=== PATIENT | female | born 1945 | race African-American/Black ===

== ENCOUNTER 2018-06-13 15:23 | Inpatient (IN) | payer OTHER ==
[~2018-06-13] VITALS: Ht 154.9 cm; Wt 111.1 kg
[~2018-06-13 15:23] MED LIST: LISI10TA5 PO; MECL-109 PO; OMEP20TA15 PO; SIMV40TA5 PO
[2018-06-13] MEDS ORDERED: KETOROLAC 30MG/ML VIAL IM ONE (17:30)
[2018-06-13 19:55] LABS: CHLORIDE 100 mEq/L (98-107)
[2018-06-13 20:01] LABS: BASOPHILS % 0.6 % (0.0-2.0); EOSINOPHILS % 0.3 % (0.0-5.0); HEMATOCRIT. 37.7 % (36.0-48.0); HEMOGLOBIN. 12.6 g/dL (12.0-16.0); LYMPHOCYTES % 11.2 % (20.0-50.0); MEAN CORPUSCULAR HEMOGLOBIN 28.6 pg (28.0-32.0); MEAN CORPUSCULAR VOLUME 85.7 fL (81.0-99.0); MEAN PLATELET VOLUME 8.8 fl (7.4-10.4); NEUTROPHILS % 80.9 % (40.0-76.0); PLATELET 499 x1000/uL (130-400); RED BLOOD CELL COUNT 4.39 mill/uL (4.2-5.4); RED CELL DISTRIBUTION WIDTH 12.9 % (11.6-14.6)
[2018-06-13 22:52] VITALS: BP 96/51
[2018-06-13 22:55] VITALS: BP 96/51
[2018-06-13] MEDS ORDERED: ACETAMINOPHEN 325MG TABLET PO PRN (23:15)
[2018-06-14 00:13] VITALS: BP 101/53
[2018-06-14 04:00] VITALS: BP 98/46
[2018-06-14 08:00] VITALS: BP 93/38
[2018-06-14] MEDS: SODIUM CHLORIDE 0.9% 1,000 ML IV SCH ×2 (08:30→21:30)
[2018-06-14] MEDS: LISINOPRIL 10MG TABLET PO SCH (09:00)
[2018-06-14] MEDS: HEPARIN 5000 UNITS/ML VIAL SUBCUT SCH ×2 (09:17→21:30)
[2018-06-14] MEDS: OMEPRAZOLE 20MG CAPSULE EXTENDED RELEASE PO SCH (09:18)
[2018-06-14 12:00] VITALS: BP 103/52
[2018-06-14 16:00] VITALS: BP 104/52
[2018-06-14 20:00] VITALS: BP 94/43
[2018-06-14] MEDS: ATORVASTATIN CALCIUM 20MG TABLET PO SCH (21:29)
[2018-06-15 00:05] VITALS: BP 94/42
[2018-06-15 04:00] VITALS: BP 103/43
[2018-06-15 07:05] LABS: BASOPHILS % 0.5 % (0.0-2.0); HEMATOCRIT. 32.8 % (36.0-48.0); LYMPHOCYTES % 22.4 % (20.0-50.0); MEAN CORPUSCULAR HEMOGLOBIN 28.7 pg (28.0-32.0); MEAN CORPUSCULAR VOLUME 85.3 fL (81.0-99.0); MEAN PLATELET VOLUME 8.9 fl (7.4-10.4); NEUTROPHILS % 66.1 % (40.0-76.0); PLATELET 382 x1000/uL (130-400); RED BLOOD CELL COUNT 3.85 mill/uL (4.2-5.4); RED CELL DISTRIBUTION WIDTH 12.9 % (11.6-14.6)
[2018-06-15 07:27] LABS: CHLORIDE 105 mEq/L (98-107)
[2018-06-15 08:00] VITALS: BP 101/42
[2018-06-15] MEDS: HEPARIN 5000 UNITS/ML VIAL SUBCUT SCH ×2 (08:21→21:12)
[2018-06-15] MEDS: OMEPRAZOLE 20MG CAPSULE EXTENDED RELEASE PO SCH (08:21)
[2018-06-15] MEDS: LISINOPRIL 10MG TABLET PO SCH (08:35)
[2018-06-15] MEDS: SODIUM CHLORIDE 0.9% 1,000 ML IV SCH (11:02)
[2018-06-15] MEDS: DOCUSATE SODIUM 250MG CAPSULE PO PRN (11:50)
[2018-06-15 12:00] VITALS: BP 108/56
[2018-06-15 16:00] VITALS: BP 120/88
[2018-06-15 20:00] VITALS: BP 114/59
[2018-06-15] MEDS: ATORVASTATIN CALCIUM 20MG TABLET PO SCH (21:12)
[2018-06-16 00:05] VITALS: BP 125/72
[2018-06-16] MEDS: SODIUM CHLORIDE 0.9% 1,000 ML IV SCH ×2 (00:44→14:45)
[2018-06-16 04:00] VITALS: BP 115/61
[2018-06-16 08:00] VITALS: BP 122/55
[2018-06-16] MEDS: OMEPRAZOLE 20MG CAPSULE EXTENDED RELEASE PO SCH (08:50)
[2018-06-16] MEDS: DOCUSATE SODIUM 250MG CAPSULE PO PRN (08:50)
[2018-06-16] MEDS: LISINOPRIL 10MG TABLET PO SCH (08:50)
[2018-06-16] MEDS: HEPARIN 5000 UNITS/ML VIAL SUBCUT SCH ×2 (08:51→21:55)
[2018-06-16 12:00] VITALS: BP 115/56
[2018-06-16] MEDS ORDERED: AMLODIPINE 5MG TABLET PO SCH (14:15)
[2018-06-16] MEDS ORDERED: DOCUSATE SODIUM 100MG CAPSULE PO PRN (14:15)
[2018-06-16] MEDS ORDERED: HYDRALAZINE 20MG/ML VIAL IV PRN (14:15)
[2018-06-16] MEDS ORDERED: MAGNESIUM/ALUMINUM HYDROXIDE/SIMETHICONE 30ML UDC PO PRN (14:15)
[2018-06-16] MEDS: AMLODIPINE 2.5MG TABLET PO SCH ×2 (14:45→21:54)
[2018-06-16] MEDS: CLONIDINE HCL 0.2MG/24HR PATCH TD SCH (15:00)
[2018-06-16 19:12] LABS: CLARITY URINE CLEAR (CLEAR); COLOR URINE YELLOW (YELLOW); KETONES URINE NEGATIVE (NEGATIVE); LEUKOCYTE ESTERASE URINE NEGATIVE (NEGATIVE); NITRITE URINE NEGATIVE (NEGATIVE); OCCULT BLOOD URINE NEGATIVE (NEGATIVE); PROTEIN URINE NEGATIVE (NEGATIVE); SPECIFIC GRAVITY URINE 1.016 (1.005-1.030); UROBILINOGEN URINE 0.2 E.U./dL (0.2-1.0)
[2018-06-16 20:00] VITALS: BP 130/61
[2018-06-16 20:41] LABS: PROTHROMBIN TIME 10.4 sec (9.1-11.1)
[2018-06-16] MEDS: ATORVASTATIN CALCIUM 20MG TABLET PO SCH (21:54)
[2018-06-17 00:33] VITALS: BP 123/63
[2018-06-17] MEDS: MORPHINE SULFATE 4 MG/ML CPJ (NOT FOR IM USE) IV PRN ×2 (00:40→10:22)
[2018-06-17] MEDS: SODIUM CHLORIDE 0.9% 1,000 ML IV SCH ×2 (03:36→17:29)
[2018-06-17] MEDS: DIPHENHYDRAMINE 50MG/ML VIAL IV PRN ×2 (03:44→21:55)
[2018-06-17 04:00] VITALS: BP 128/50
[2018-06-17 06:09] LABS: BASOPHILS % 0.7 % (0.0-2.0); EOSINOPHILS % 1.1 % (0.0-5.0); HEMATOCRIT. 31.8 % (36.0-48.0); HEMOGLOBIN. 10.7 g/dL (12.0-16.0); LYMPHOCYTES % 20.2 % (20.0-50.0); MEAN CORPUSCULAR HEMOGLOBIN 28.6 pg (28.0-32.0); MEAN CORPUSCULAR VOLUME 85.2 fL (81.0-99.0); MEAN PLATELET VOLUME 9.5 fl (7.4-10.4); MONOCYTES % 7.6 % (2.0-8.0); NEUTROPHILS % 70.4 % (40.0-76.0); PLATELET 339 x1000/uL (130-400); RED BLOOD CELL COUNT 3.73 mill/uL (4.2-5.4); RED CELL DISTRIBUTION WIDTH 13.1 % (11.6-14.6)
[2018-06-17 06:29] LABS: CHLORIDE 108 mEq/L (98-107)
[2018-06-17 06:40] LABS: CREATINE KINASE 38 IU/L (26-192); LDL CHOLESTEROL 74 mg/dL (5-100)
[2018-06-17 06:47] LABS: HDL CHOLESTEROL 39 mg/dL (40-59)
[2018-06-17 08:00] VITALS: BP 134/65
[2018-06-17] MEDS: OMEPRAZOLE 20MG CAPSULE EXTENDED RELEASE PO SCH (09:05)
[2018-06-17] MEDS: AMLODIPINE 2.5MG TABLET PO SCH ×2 (09:05→20:36)
[2018-06-17] MEDS: HEPARIN 5000 UNITS/ML VIAL SUBCUT SCH (09:06)
[2018-06-17] MEDS: CLONIDINE HCL 0.2MG/24HR PATCH TD SCH (09:08)
[2018-06-17] MEDS ORDERED: POTASSIUM CHLORIDE 20MEQ/PACKET PO NR (10:45)
[2018-06-17] MEDS ORDERED: MAGNESIUM 2 G PREMIX 50 ML IV NR (11:30)
[2018-06-17 12:00] VITALS: BP 127/78
[2018-06-17 16:00] VITALS: BP 130/79
[2018-06-17] MEDS ORDERED: MORPHINE SULFATE 4 MG/ML CPJ (NOT FOR IM USE) IV PRN (19:15)
[2018-06-17 20:00] VITALS: BP 121/66
[2018-06-17] MEDS: ATORVASTATIN CALCIUM 20MG TABLET PO SCH (21:55)
[2018-06-18] VITALS (35 sets, daily range): BP systolic 87–141; BP diastolic 32–87
[2018-06-18] MEDS ORDERED: LIDOCAINE HCL/EPINEPHRINE 1%-EPI 1:100,000 20 ML VIAL ONE (06:27)
[2018-06-18] MEDS ORDERED: THROMBIN (BOVINE) 5000 UNITS/VIAL TOP ONE ×2 (06:27→09:43)
[2018-06-18] MEDS ORDERED: BACITRACIN 50,000 UNITS/VIAL ONE (06:28)
[2018-06-18] MEDS ORDERED: HYDROMORPHONE HCL/PF 2MG/ML (OR) ONE (06:44)
[2018-06-18 06:45] LABS: BASOPHILS % 0.6 % (0.0-2.0); EOSINOPHILS % 2.9 % (0.0-5.0); HEMOGLOBIN. 11.1 g/dL (12.0-16.0); LYMPHOCYTES % 13.4 % (20.0-50.0); MEAN CORPUSCULAR HEMOGLOBIN 28.5 pg (28.0-32.0); MEAN CORPUSCULAR VOLUME 84.7 fL (81.0-99.0); MEAN PLATELET VOLUME 9.4 fl (7.4-10.4); NEUTROPHILS % 76.1 % (40.0-76.0); PLATELET 407 x1000/uL (130-400); RED BLOOD CELL COUNT 3.89 mill/uL (4.2-5.4); RED CELL DISTRIBUTION WIDTH 12.8 % (11.6-14.6)
[2018-06-18] MEDS ORDERED: PROPOFOL 200MG/20ML VIAL IV ONE (06:45)
[2018-06-18] MEDS ORDERED: FENTANYL CITRATE/PF 50MCG/ML 5ML VIAL ONE (06:45)
[2018-06-18] MEDS ORDERED: ROCURONIUM BROMIDE 10MG/ML VIAL 5ML IV ONE ×2 (06:45→07:37)
[2018-06-18] MEDS ORDERED: MIDAZOLAM HCL 2 MG/2 ML VIAL ONE (06:46)
[2018-06-18] MEDS ORDERED: CEFAZOLIN SODIUM 1000MG/VIAL ONE (06:49)
[2018-06-18] MEDS ORDERED: ONDANSETRON HCL 4MG/2ML INJ IV PRN (07:15)
[2018-06-18 07:45] LABS: CHLORIDE 108 mEq/L (98-107)
[2018-06-18] MEDS ORDERED: ESMOLOL HCL 10MG/ML 10ML VIAL IV ONE (07:55)
[2018-06-18] MEDS ORDERED: HYDROCODONE/APAP 7.5/325MG 1 TAB TABLET PO PRN (09:00)
[2018-06-18] MEDS ORDERED: GLYCOPYRROLATE 0.2 MG/ML 2ML VIAL ONE (10:13)
[2018-06-18] MEDS ORDERED: BACITRACIN 15GM TUBE TOP ONE (10:38)
[2018-06-18] MEDS ORDERED: DIPHENHYDRAMINE INJ IV PRN (11:00)
[2018-06-18] MEDS ORDERED: NALOXONE INJ IV PRN (11:00)
[2018-06-18] MEDS ORDERED: ONDANSETRON INJ IV PRN (11:00)
[2018-06-18] MEDS: MORPHINE SULFATE 4 MG/ML CPJ (NOT FOR IM USE) IV PRN (11:47)
[2018-06-18] MEDS: DEXT 5%/LACTATED RINGERS 1,000 ML IV SCH ×2 (11:47→21:23)
[2018-06-18] MEDS ORDERED: NICARDIPINE 100 MG in SODIUM CHLORIDE 0.9% 60 ML IV PRN (12:00)
[2018-06-18] MEDS: HYDROMORPHONE PCA 10MG/50ML IV PRN (12:33)
[2018-06-18] MEDS: OMEPRAZOLE 20MG CAPSULE EXTENDED RELEASE PO SCH (13:08)
[2018-06-18] MEDS ORDERED: CEFAZOLIN SODIUM 1000MG/VIAL IV SCH (14:00)
[2018-06-18] MEDS: CEFAZOLIN 1000MG PREMIX 50 ML IV SCH ×2 (16:58→21:18)
[2018-06-18] MEDS: NEBIVOLOL HCL 5 MG TABLET PO SCH (16:59)
[2018-06-18 18:30] LABS: HEMATOCRIT 31.3 % (36.0-48.0); HEMOGLOBIN 10.4 g/dL (12.0-16.0)
[2018-06-18] MEDS: AMLODIPINE 2.5MG TABLET PO SCH (21:00)
[2018-06-18] MEDS: ATORVASTATIN CALCIUM 20MG TABLET PO SCH (21:19)
[2018-06-19] VITALS (41 sets, daily range): BP systolic 77–121; BP diastolic 43–78
[2018-06-19] MEDS: DEXT 5%/LACTATED RINGERS 1,000 ML IV SCH ×4 (05:44→22:43)
[2018-06-19] MEDS: CEFAZOLIN 1000MG PREMIX 50 ML IV SCH ×3 (05:44→21:03)
[2018-06-19] MEDS: OMEPRAZOLE 20MG CAPSULE EXTENDED RELEASE PO SCH (05:44)
[2018-06-19 06:32] LABS: HEMATOCRIT 34.1 % (36.0-48.0); HEMOGLOBIN 11.1 g/dL (12.0-16.0); MEAN CORPUSCULAR HEMOGLOBIN 28.1 pg (28.0-32.0); MEAN CORPUSCULAR VOLUME 86.4 fL (81.0-99.0); PLATELET 435 x1000/uL (130-400); RED BLOOD CELL COUNT 3.95 mill/uL (4.2-5.4); RED CELL DISTRIBUTION WIDTH 13.4 % (11.6-14.6)
[2018-06-19] MEDS: MORPHINE SULFATE 4 MG/ML CPJ (NOT FOR IM USE) IV PRN (08:31)
[2018-06-19] MEDS: NEBIVOLOL HCL 5 MG TABLET PO SCH (09:44)
[2018-06-19] MEDS ORDERED: SODIUM CHLORIDE 0.9% 500 ML IV SCH (11:45)
[2018-06-19] MEDS ORDERED: MAGNESIUM 1 G PREMIX 100 ML IV NR ×2 (13:22→16:00)
[2018-06-19] MEDS ORDERED: SODIUM CHLORIDE 0.9% 500 ML IV NR (19:45)
[2018-06-19] MEDS: ATORVASTATIN CALCIUM 20MG TABLET PO SCH (20:01)
[2018-06-19] MEDS: AMLODIPINE 2.5MG TABLET PO SCH (21:00)
[2018-06-19] MEDS: HYDROMORPHONE PCA 10MG/50ML IV PRN (21:14)
[2018-06-20] VITALS (60 sets, daily range): BP systolic 51–184; BP diastolic 20–99
[2018-06-20] MEDS: DEXT 5%/LACTATED RINGERS 1,000 ML IV SCH ×3 (05:38→21:23)
[2018-06-20] MEDS: CEFAZOLIN 1000MG PREMIX 50 ML IV SCH ×2 (05:38→15:46)
[2018-06-20] MEDS: OMEPRAZOLE 20MG CAPSULE EXTENDED RELEASE PO SCH (05:38)
[2018-06-20 05:46] LABS: HEMATOCRIT 24.9 % (36.0-48.0); HEMOGLOBIN 8.4 g/dL (12.0-16.0); MEAN CORPUSCULAR HEMOGLOBIN 28.9 pg (28.0-32.0); PLATELET 321 x1000/uL (130-400); RED BLOOD CELL COUNT 2.89 mill/uL (4.2-5.4); RED CELL DISTRIBUTION WIDTH 13.1 % (11.6-14.6)
[2018-06-20 05:53] LABS: CHLORIDE 108 mEq/L (98-107)
[2018-06-20] MEDS: NEBIVOLOL HCL 5 MG TABLET PO SCH (09:00)
[2018-06-20] MEDS: AMLODIPINE 2.5MG TABLET PO SCH (09:00)
[2018-06-20] MEDS: MIDODRINE HCL 5MG TABLET PO SCH ×2 (15:46→19:11)
[2018-06-20] MEDS: ATORVASTATIN CALCIUM 20MG TABLET PO SCH (21:23)
[2018-06-20] MEDS ORDERED: NOREPINEPHRINE 8 MG in DEXT 5% WATER 492 ML IV PRN (22:15)
[2018-06-21] VITALS (70 sets, daily range): BP systolic 78–132; BP diastolic 25–77
[2018-06-21] MEDS: DEXT 5%/LACTATED RINGERS 1,000 ML IV SCH ×3 (01:40→15:00)
[2018-06-21 05:19] LABS: BASOPHILS % 0.4 % (0.0-2.0); EOSINOPHILS % 2.8 % (0.0-5.0); HEMATOCRIT. 25.5 % (36.0-48.0); HEMOGLOBIN. 8.7 g/dL (12.0-16.0); LYMPHOCYTES % 14.3 % (20.0-50.0); MEAN CORPUSCULAR VOLUME 85.5 fL (81.0-99.0); MEAN PLATELET VOLUME 8.6 fl (7.4-10.4); MONOCYTES % 10.2 % (2.0-8.0); NEUTROPHILS % 72.3 % (40.0-76.0); PLATELET 345 x1000/uL (130-400); RED BLOOD CELL COUNT 2.98 mill/uL (4.2-5.4); RED CELL DISTRIBUTION WIDTH 13.1 % (11.6-14.6)
[2018-06-21 05:36] LABS: CHLORIDE 109 mEq/L (98-107)
[2018-06-21] MEDS: OMEPRAZOLE 20MG CAPSULE EXTENDED RELEASE PO SCH (05:39)
[2018-06-21] MEDS: MIDODRINE HCL 5MG TABLET PO SCH ×3 (09:00→17:00)
[2018-06-21] MEDS: ATORVASTATIN CALCIUM 20MG TABLET PO SCH (20:43)
[2018-06-22] VITALS (36 sets, daily range): BP systolic 106–163; BP diastolic 49–94
[2018-06-22] MEDS: DEXT 5%/LACTATED RINGERS 1,000 ML IV SCH ×3 (01:44→20:44)
[2018-06-22] MEDS: OMEPRAZOLE 20MG CAPSULE EXTENDED RELEASE PO SCH (06:24)
[2018-06-22] MEDS: MIDODRINE HCL 5MG TABLET PO SCH ×3 (10:05→19:27)
[2018-06-22] MEDS: ATORVASTATIN CALCIUM 20MG TABLET PO SCH (20:44)
[2018-06-23] VITALS (17 sets, daily range): BP systolic 115–138; BP diastolic 49–71
[2018-06-23] MEDS: OMEPRAZOLE 20MG CAPSULE EXTENDED RELEASE PO SCH (06:18)
[2018-06-23] MEDS: DEXT 5%/LACTATED RINGERS 1,000 ML IV SCH (06:18)
[2018-06-23] MEDS: CLONIDINE HCL 0.2MG/24HR PATCH TD SCH (08:12)
[2018-06-23] MEDS: MIDODRINE HCL 5MG TABLET PO SCH ×3 (09:55→17:52)
[2018-06-23 14:35] LABS: BASOPHILS % 0.5 % (0.0-2.0); EOSINOPHILS % 2.5 % (0.0-5.0); HEMATOCRIT. 24.2 % (36.0-48.0); HEMOGLOBIN. 8.3 g/dL (12.0-16.0); MEAN CORPUSCULAR HEMOGLOBIN 28.9 pg (28.0-32.0); MEAN CORPUSCULAR VOLUME 84.4 fL (81.0-99.0); MEAN PLATELET VOLUME 8.5 fl (7.4-10.4); MONOCYTES % 8.5 % (2.0-8.0); NEUTROPHILS % 69.5 % (40.0-76.0); PLATELET 383 x1000/uL (130-400); RED BLOOD CELL COUNT 2.87 mill/uL (4.2-5.4); RED CELL DISTRIBUTION WIDTH 13.1 % (11.6-14.6)
[2018-06-23 14:47] LABS: CHLORIDE 107 mEq/L (98-107)
[2018-06-23] MEDS: MORPHINE SULFATE 4 MG/ML CPJ (NOT FOR IM USE) IV PRN ×2 (17:52→21:35)
[2018-06-23] MEDS ORDERED: MAGNESIUM 2 G PREMIX 50 ML IV NR (18:00)
[2018-06-23] MEDS: ATORVASTATIN CALCIUM 20MG TABLET PO SCH (21:24)
[2018-06-23] MEDS: DIPHENHYDRAMINE 50MG/ML VIAL IV PRN (21:24)
[2018-06-24] VITALS (10 sets, daily range): BP systolic 111–137; BP diastolic 45–74
[2018-06-24] MEDS: MORPHINE SULFATE 4 MG/ML CPJ (NOT FOR IM USE) IV PRN ×3 (05:20→20:22)
[2018-06-24 06:31] LABS: BASOPHILS % 0.6 % (0.0-2.0); EOSINOPHILS % 3.5 % (0.0-5.0); HEMATOCRIT. 22.2 % (36.0-48.0); HEMOGLOBIN. 7.6 g/dL (12.0-16.0); LYMPHOCYTES % 24.7 % (20.0-50.0); MEAN CORPUSCULAR HEMOGLOBIN 28.8 pg (28.0-32.0); MEAN CORPUSCULAR VOLUME 84.5 fL (81.0-99.0); MEAN PLATELET VOLUME 8.6 fl (7.4-10.4); NEUTROPHILS % 61.2 % (40.0-76.0); PLATELET 362 x1000/uL (130-400); RED BLOOD CELL COUNT 2.63 mill/uL (4.2-5.4)
[2018-06-24 08:34] LABS: CHLORIDE 106 mEq/L (98-107)
[2018-06-24] MEDS: OMEPRAZOLE 20MG CAPSULE EXTENDED RELEASE PO SCH (08:58)
[2018-06-24] MEDS: MIDODRINE HCL 5MG TABLET PO SCH ×3 (08:59→18:03)
[2018-06-24] MEDS ORDERED: ASPIRIN 81MG EC TABLET PO SCH (09:00)
[2018-06-24 14:30] LABS: TOTAL IRON BINDING CAPACITY 142 ug/dL (250-450)
[2018-06-24 14:49] LABS: FOLIC ACID (FOLATE) SERUM 11.9 ng/mL (>5.38)
[2018-06-24] MEDS ORDERED: HYDROCODONE/ACETAMINOPHEN 5/325MG TABLET PO PRN (17:00)
[2018-06-24] MEDS: FERROUS SULFATE 325MG TABLET PO SCH (18:03)
[2018-06-24] MEDS: ATORVASTATIN CALCIUM 20MG TABLET PO SCH (20:24)
[2018-06-25] VITALS (7 sets, daily range): BP systolic 114–145; BP diastolic 48–60
[2018-06-25] MEDS: MORPHINE SULFATE 4 MG/ML CPJ (NOT FOR IM USE) IV PRN (05:12)
[2018-06-25 06:32] LABS: BASOPHILS % 0.6 % (0.0-2.0); EOSINOPHILS % 2.6 % (0.0-5.0); HEMOGLOBIN. 8.8 g/dL (12.0-16.0); MEAN CORPUSCULAR HEMOGLOBIN 28.8 pg (28.0-32.0); MEAN PLATELET VOLUME 8.3 fl (7.4-10.4); MONOCYTES % 10.8 % (2.0-8.0); PLATELET 372 x1000/uL (130-400); RED BLOOD CELL COUNT 3.06 mill/uL (4.2-5.4); RED CELL DISTRIBUTION WIDTH 13.3 % (11.6-14.6)
[2018-06-25 06:58] LABS: CHLORIDE 105 mEq/L (98-107)
[2018-06-25] MEDS: MIDODRINE HCL 5MG TABLET PO SCH ×3 (08:48→17:00)
[2018-06-25] MEDS: FERROUS SULFATE 325MG TABLET PO SCH ×2 (08:48→13:32)
[2018-06-25] MEDS: OMEPRAZOLE 20MG CAPSULE EXTENDED RELEASE PO SCH (08:49)
[2018-06-25] MEDS ORDERED: ASPIRIN 81MG EC TABLET PO SCH (13:30)
[2018-06-25] MEDS ORDERED: DOCUSATE SODIUM 250MG CAPSULE PO SCH (14:11)
[2018-06-25] MEDS ORDERED: MAGNESIUM CITRATE 300ML SOLUTION PO NR (14:30)
[2018-06-25] MEDS ORDERED: IRON SUCROSE COMPLEX 100 MG/5 ML ML IV SCH (15:28)
[2018-06-25] MEDS ORDERED: LACTULOSE 20G/30ML UDC PO NR (15:30)
[2018-06-25] MEDS ORDERED: CLOPIDOGREL 75MG TABLET PO SCH (19:15)
[2018-06-25] MEDS: ATORVASTATIN CALCIUM 20MG TABLET PO SCH (20:07)
== END 2018-06-25 20:20 | DRG 459 ==
LOC: ER 15:23 → 7WST 19:29 → ENRESERV 21:21 → CANRESERV 21:21 → ENRESERV 21:23 → CANRESERV 21:23 → MICUSO 06-18 10:42 → 7WST 06-23 14:56
PROVIDERS: ADMIT Internal Medicine; ATTEND Internal Medicine
PROC: 02HV33Z Insertion of Infusion Device into Superior Vena Cava, Percutaneous Approach (ICD-10-PCS; 2018-06-16)
PROC: B518ZZA Fluoroscopy of Superior Vena Cava, Guidance (ICD-10-PCS; 2018-06-16)
PROC: B548ZZA Ultrasonography of Superior Vena Cava, Guidance (ICD-10-PCS; 2018-06-16)
PROC: 0SG1071 Fusion of 2 or more Lumbar Vertebral Joints with Autologous Tissue Substitute, Posterior Approach, Posterior Column, Open Approach (ICD-10-PCS; principal; 2018-06-18)
PROC: 01NB0ZZ Release Lumbar Nerve, Open Approach (ICD-10-PCS; 2018-06-18)
DX: M48.061 Spinal stenosis, lumbar region without neurogenic claudication (principal); E43 Unspecified severe protein-calorie malnutrition; N17.9 Acute kidney failure, unspecified; G82.20 Paraplegia, unspecified; Z68.42 Body mass index [BMI] 45.0-49.9, adult; M48.07 Spinal stenosis, lumbosacral region; I10 Essential (primary) hypertension; M77.30 Calcaneal spur, unspecified foot; E78.5 Hyperlipidemia, unspecified; M51.86 Other intervertebral disc disorders, lumbar region; E83.42 Hypomagnesemia; D72.829 Elevated white blood cell count, unspecified; E78.00 Pure hypercholesterolemia, unspecified; E86.0 Dehydration; N18.9 Chronic kidney disease, unspecified; E03.9 Hypothyroidism, unspecified; I12.9 Hypertensive chronic kidney disease with stage 1 through stage 4 chronic kidney disease, or unspecified chronic kidney disease; R00.0 Tachycardia, unspecified; D50.9 Iron deficiency anemia, unspecified; I25.10 Atherosclerotic heart disease of native coronary artery without angina pectoris; K59.00 Constipation, unspecified; I95.2 Hypotension due to drugs; T39.95XA Adverse effect of unspecified nonopioid analgesic, antipyretic and antirheumatic, initial encounter; Y92.238 Other place in hospital as the place of occurrence of the external cause; Z90.11 Acquired absence of right breast and nipple; Z90.49 Acquired absence of other specified parts of digestive tract; I25.2 Old myocardial infarction; Z85.3 Personal history of malignant neoplasm of breast; Z92.3 Personal history of irradiation; Z95.5 Presence of coronary angioplasty implant and graft; Z79.899 Other long term (current) drug therapy
CPT/HCPCS: 36415; 36569; 71045; 72100; 72148; 73590; 73610; 73630; 76000; 76770; 76937; 77001; 78582; 80048; 80061; 82270; 82550; 82553; 82607; 82746; 83036; 83540; 83550; 83735; 83880; 84439; 84443; 84484; 85014; 85018; 85027; 85044; 85379; 86850; 86900; 86920; 88304; 88311; 93005; 93306; 93970; 95863; 95925; 95926; 96372; 97110; 97162; 97164; 97166; 97530; 97535; 99285; A6261; A9558; C1725; C1893; J0690; J1170; J1200; J1644; J1885; J2250; J2270; J2405; J2704; J3010; J3475; J3490; J7030; J7040; J7050; J7060; J7121; P9016